=== PATIENT | male | born 1995 | race African-American/Black ===

== ENCOUNTER 2019-09-11 16:28 | Emergency (ER) | payer BC ==
[~2019-09-11] VITALS: Ht 180.3 cm; Wt 70.0 kg
[2019-09-11] MEDS ORDERED: SULF1TAB24 PO (17:00)
--- NOTE | 2019-09-11 17:00 | PHYS DOC ---
General Adult EDM: Chief Complaint: CELLULITIS HPI: HPI: Patient is a 23-year-old male who presents with complaint of redness and swelling around an abrasion that he sustained on his right forearm. Patient states that he had gone swimming and over the last couple of days has increased swelling and redness and patient states that he has been using hydrogen peroxide to try and improve things but he states that things are still getting worse. He denies any fever. [] Review of Systems: Review of Systems: Constitutional: Denies fever or chills Respiratory: Denies cough or shortness of breath Cardiovascular: Denies chest pain or edema Integument: Positive redness and swelling to right forearm Neurologic: Denies headache, focal weakness or sensory changes Heart Score: Risk Factors: Risk Factors: DM, Current or recent (<one month) smoker, HTN, HLP, family history of CAD, obesity. Risk Scores: Score 0 - 3: 2.5% MACE over next 6 weeks - Discharge Home Score 4 - 6: 20.3% MACE over next 6 weeks - Admit for Clinical Observation Score 7 - 10: 72.7% MACE over next 6 weeks - Early Invasive Strategies Physical Exam: PE: Constitutional: Well developed, well nourished, no acute distress, non-toxic appearance. [] Cardiovascular: Regular rate and rhythm [] Lungs & Thorax: Bilateral breath sounds clear to auscultation [] Skin: Volar aspect of right forearm demonstrates small abrasion with surrounding erythema and swelling, consistent with cellulitis. [] EKG: EKG: [] Radiology/Procedures: Radiology/Procedures: [] Course & Med Decision Making: Course & Med Decision Making Pertinent Labs and Imaging studies reviewed. (See chart for details) [] Dragon Disclaimer: Alvin Disclaimer: This electronic medical record was generated, in whole or in part, using a voice recognition dictation system. Departure Departure: Impression: Primary Impression: Cellulitis of right forearm Disposition: HOME/RESIDENCE PRIOR TO ADM Condition: STABLE Referrals: PCP,NO (PCP) Patient Instructions: Cellulitis Scripts Sulfamethoxazole/Trimethoprim (BACTRIM DS TABLET) 1 Each Tablet 1 TAB PO BID for infection for 10 Days, #20 TAB 0 Refills Prov: TINA GEE Jr. DO 09/11/19 Justification of Admission: Justification of Admission: Justification of Admission Dx: N/A TINA GEE Jr. DO Sep 11, 2019 17:00
[2019-09-11 18:12] VITALS: BP 113/81
== END 2019-09-11 17:02 | disposition home or self-care (01) ==
LOC: ER 16:28
DX: S50.811A Abrasion of right forearm, initial encounter (principal); L03.113 Cellulitis of right upper limb; X58.XXXA Exposure to other specified factors, initial encounter; Y93.89 Activity, other specified; Y92.89 Other specified places as the place of occurrence of the external cause; Y99.8 Other external cause status
CPT/HCPCS: 99283